=== PATIENT | female | born 1950 ===

== ENCOUNTER 2024-02-14 15:09 | Emergency (ER) | payer MEDICARE, SELFPAY ==
[2024-02-14] VITALS (8 sets, daily range): BP systolic 124–151; BP diastolic 59–84; PULSE 68–75; RESP 17–18; TEMP 36.4–36.9; O2SAT 98–99
--- NOTE | ~2024-02-14 | CT_ITS ---
EXAMINATION: CT abdomen pelvis w con DATE: 02/14/2024 16:38 INDICATION: rlq pain TECHNIQUE: Computed tomography (CT) of the abdomen and pelvis was performed with intravenous contrast . Automated exposure control and iterative reconstruction technique were employed. The dose-length pr oduct was 395.18 mGy-cm. COMPARISON: None. FINDINGS: Lower thorax: 4 mm left lower lobe pulmonary nodules. Peripheral reticular opacities. Liver: Normal. Biliary/Gallbladder: Gallbladder is absent. No bile duct dilation. Pancreas: No mass or duct dilation. Spleen: Normal. Adrenals:No mass. Kidneys: 11 mm indeterminate density exophytic left lower pole lesion. No obstructing calcification. No hydronephrosis. GI tract: Moderate hiatal hernia. Mild distal esophageal and gastric wall edema. No small or large zeyad wel dilation. Fecal content in the distal ileum. Normal appendix. Diverticulosis without diverticulit is. Mesentery/Peritoneum: No ascites, mass, or free air. Mild mesenteric stranding in the right lower brian drant. Retroperitoneum: No mass. Atherosclerotic abdominal aortic and/or arterial calcifications. Pelvis: Normal urinary bladder. Absent uterus. Bilateral ovaries not confidently visualized. Soft Tissues: Soft tissues and body wall unremarkable. Bones: No acute osseous finding. IMPRESSION: 4 mm left lower lobe pulmonary nodule requiring additional follow-up, unless the patient is at high r isk, in which case consider an optional CT in 12 months. Esophagitis/gastritis. 11 mm indeterminate right lower pole lesion, recommend nonemergent MRI or CT without and with contras t for further evaluation. Delayed transit time in the ileum with mild surrounding mesenteric edema/inflammation may represent i leitis in the appropriate clinical context. No CT evidence of appendicitis or obstructive uropathy. Reviewed, dictated and finalized at location [facility]. IMPRESSION: 4 mm left lower lobe pulmonary nodule requiring additional follow-up, unless th e patient is at high risk, in which case consider an optional CT in 12 months. Esophagitis/gastritis. 11 mm indeterminate right lower pole lesion, recommend nonemergent MRI or CT wi thout and with contrast for further evaluation. Delayed transit time in the ileum with mild surrounding mesenteric edema/inflam mation may represent ileitis in the appropriate clinical context. No CT evidence of appendicitis or obstructive uropathy.
--- NOTE | 2024-02-14 15:20 | ED.ABDPAIN ---
HPI - Abdominal Pain General Chief Complaint: Abdominal Pain Stated Complaint: abd pain Time Seen by Provider: 02/14/24 15:19 Source: patient Mode of arrival: ambulatory Limitations: no limitations History of Present Illness HPI narrative: 73 years old white male drove herself to the emergency room complaining of right lower quadrant pain started tie carrier gradually got worse associated with nausea and vomiting. Sharp stabbing, no radiation, no aggravating or relieving factors. She denies any fever or chills. History of cholecystectomy and hysterectomy. Related Data Home Medications Medication Instructions Recorded Confirmed aspirin 81 mg tablet,delayed 81 mg PO DAILY 02/20/20 02/14/24 release (Adult Aspirin Regimen) ezetimibe 10 mg tablet 10 mg PO DAILY 02/20/20 02/14/24 ibuprofen 600 mg tablet 600 mg PO Q6H PRN Pain 02/20/20 02/14/24 pravastatin 80 mg tablet 80 mg PO DAILY 02/20/20 02/14/24 Allergies Allergy/AdvReac Type Severity Reaction Status Date / Time morphine AdvReac Stopped Verified 02/14/24 15:15 Breathing Review of Systems Review of Systems: All systems reviewed & are unremarkable except as noted in HPI and below Exam Narrative: General appearance: Well-developed, well-nourished Skin: Normal color Head: Normocephalic, nontraumatic Eyes: Clear conjunctiva ENT: Oropharynx normal, ears normal, nose normal Neck: Supple, nontender Chest and respiratory: Airway patent, no respiratory distress, no accessory muscle use Heart: Regular rate/rhythm Abdomen: Soft, Right lower quadrant tenderness,no organomegaly, quiet bowel sounds Vascular: Normal peripheral pulses, normal capillary refill. Musculoskeletal: Normal range of motion, nontender back Neurologic: Alert and oriented ?3, [employer] is normal as tested, no gross motor deficit Course Vital Signs Vital signs: Vital Signs Temperature 36.4 C 02/14/24 15:09 Pulse Rate 68 02/14/24 15:09 Respiratory Rate 17 02/14/24 15:09 Blood Pressure 135/84 02/14/24 15:09 Pulse Oximetry 98 02/14/24 15:09 Temperature 36.4 C 02/14/24 15:09 Pulse Rate 68 02/14/24 15:09 Respiratory Rate 17 02/14/24 15:09 Blood Pressure 135/84 02/14/24 15:09 Pulse Oximetry 98 02/14/24 15:09 MDM - Abdominal Pain MDM Narrative Medical decision making narrative: differential diagnosis acute appendicitis, urinary tract infection, colitis, diverticulitis, constipation, kidney stone Blood workup today showed no significant abnormality, CT scan of the abdomen and pelvis with IV contrast showed possible ileitis, pulmonary nodule, right kidney lesion, Urinalysis came back positive for infection. Urinary tract infection is my concern. Patient received 1 g of Rocephin IV prior to discharge, discharged on Macrobid 500 b.i.d. for 5 days. At the time of discharge patient told me that she have melanoma with metastasis and has been having CT scan of the chest abdomen and pelvis every 6 months for follow-up. Lab Data 02/14/24 15:42 02/14/24 15:42 Labs: Lab Results 02/14/24 02/14/24 Range/Units 15:42 17:00 WBC 6.3 (4.8-10.8) K/mm3 RBC 3.41 L (4.20-5.40) M/mm3 Hgb 11.1 L (11.7-13.8) g/dL Hct 33.5 L (35.0-42.0) % MCV 98.2 (78.0-102.0) fL MCH 32.6 H (27.0-31.0) pg MCHC 33.1 (32-36) g/dL RDW 12.9 (11.6-14.4) % Plt Count 248 (150-420) K/mm3 MPV 9.5 (9.2-11.8) fl Immature Gran % (Auto) 0.3 H (0.0-0.0) % Neut % (Auto) 71.5 H (50.0-70.0) % Lymph % (Auto) 21.5 (18.0-42.0) % [place] % (Auto) 5.5 (2.0-11.0) % Eos % (Auto) 0.6 L (1.0-6.0) % Baso % (Auto) 0.6 (0.0-1.0) % Lymph
[2024-02-14] MEDS: SODIUM CHLORIDE 0.9% IV 1,000 ML 999 ML IV CONT (15:30)
[2024-02-14] MEDS: ONDANSETRON INJ 4 MG/2 ML VIAL IV PUSH (15:31)
[2024-02-14] MEDS: HYDROmorphone HCL INJ (*CRX) 2 MG/ML VIAL 0.5 MG IV PUSH (15:32)
[2024-02-14 15:48] LABS: Basophils Absolute Auto 0.04 K/mm3 (0.00-0.10); Basophils Percent Auto 0.6 % (0.0-1.0); Eosinophils Absolute Auto 0.04 K/mm3 (0.02-0.50); Eosinophils Percent Auto 0.6 % (1.0-6.0); Hematocrit 33.5 % (35.0-42.0); Hemoglobin 11.1 g/dL (11.7-13.8); Immature Granulocyte Absolute 0.02 K/mm3 (0.00-0.00); Immature Granulocyte Percent A 0.3 % (0.0-0.0); Lymphocytes Absolute Auto 1.36 K/mm3 (1.10-4.50); Lymphocytes Percent Auto 21.5 % (18.0-42.0); Mean Corpuscular HGB Conc 33.1 g/dL (32-36); Mean Corpuscular Hemoglobin 32.6 pg (27.0-31.0); Mean Corpuscular Volume 98.2 fL (78.0-102.0); Mean Platelet Volume 9.5 fl (9.2-11.8); Monocytes Absolute Auto 0.35 K/mm3 (0.10-0.90); Monocytes Percent Auto 5.5 % (2.0-11.0); Neutrophils Absolute Auto 4.51 K/mm3 (1.70-7.20); Neutrophils Percent Auto 71.5 % (50.0-70.0); Platelet Count Result 248 K/mm3 (150-420); Red Blood Count 3.41 M/mm3 (4.20-5.40); Red Cell Distribution Width 12.9 % (11.6-14.4); White Blood Count 6.3 K/mm3 (4.8-10.8)
[2024-02-14 16:03] LABS: Anion Gap 9 mmol/L (4-12); Blood Urea Nitrogen 12 mg/dL (7-18); Carbon Dioxide 26 mmol/L (21-32); Chloride 102 mmol/L (98-108); Estimated Glomerular Filt Rate > 60; Glucose 101 mg/dL (70-99); Potassium 4.6 mmol/L (3.5-5.1); Sodium 137 mmol/L (136-145)
[2024-02-14 16:04] LABS: Alanine Aminotransferase 27 U/L (14-59); Albumin Level 3.6 g/dL (3.4-5.0); Alkaline Phosphatase 44 U/L (46-116); Aspartate Amino Transferase 23 U/L (15-37); Bilirubin,Total 0.6 mg/dL (0.00-1.00); Calcium 8.9 mg/dL (8.5-10.1); Lipase 27 U/L (16-77); Osmolality Calculated 283 mOsm/kg (285-295); Total Protein 6.6 g/dL (6.4-8.2)
[2024-02-14 17:10] LABS: Appearance Urine Clear (Clear); Bilirubin Urine Negative (Negative); Color Urine Light Yellow (Yellow); Glucose Urine UA Negative (Negative); Ketones Urine Trace (Negative); Leukocyte Esterase Ur Negative LEU/UL (Negative); Nitrate Urine Positive (Negative); Protein Urine Negative (Negative); Specific Grav Ur <= 1.005 (1.010-1.020); Urobilinogen Urine 0.2 mg/dL (0.2-1.0); pH Urine 6.5 (5.0-8.0)
[2024-02-14 17:11] LABS: Add Urine Microscopic? YES; Blood Urine Trace (Negative)
[2024-02-14 17:14] LABS: Bacteria Urine 3+ /hpf; RBC Urine 0-2 /hpf (0-2); Squamous Epithelial Cell Urine Few /hpf (Few); WBC Urine None seen /hpf (0-3)
[2024-02-14] MEDS: KETOROLAC 15 MG/ML VIAL (*BKC) IV PUSH (17:50)
--- NOTE | 2024-02-16 13:01 | PC.NURSE ---
PRELIMINARY URINE CULTURE RESULTS: ISOLATE 1: GREATER THAN 100,000 CFU/ML OF GRAM NEGATIVE BACILLI ISOLATED. TO AWAIT C&S PER DR BRIGGS
--- NOTE | 2024-02-17 14:15 | PC.NURSE ---
urine culture , abt macrobid is susceptible . no change needed .
--- NOTE | 2024-02-17 14:17 | PC.NURSE ---
pt started on macrobid. urine culture noted. no change needed
== END 2024-02-14 18:11 | disposition home or self-care (01) ==
PROVIDERS: Emergency Provider Emergency Medicine; PCP Family Medicine
DX: R91.1 Solitary pulmonary nodule (principal); N28.9 Disorder of kidney and ureter, unspecified; K52.9 Noninfective gastroenteritis and colitis, unspecified; N39.0 Urinary tract infection, site not specified; Z79.82 Long term (current) use of aspirin
CPT/HCPCS: 36415; 74177; 80053; 81001; 83690; 85025; 87077; 87086; 87088; 87186; 96361; 96365; 96375; 99284; J0696; J1170; J1885; J2405; J7030; Q9967